=== PATIENT | male | born 1975 | race Caucasian/White ===

== ENCOUNTER → 2020-08-31 08:37 | Outpatient (CLI) | payer OTHER, SELFPAY ==
[2020-08-31 13:09] LABS: Absolute Lymphocyte Count 1.76 X10^3/uL (0.83-4.51); Absolute Neutrophil Count 4.3 X10^3/uL (2.0-7.7); Basophil# 0.06 X10^3/uL; Basophil% 0.9 % (0-1); Eosinophil# 0.32 X10^3/uL; Eosinophils% 4.6 % (0-5); Hematocrit 45.8 % (40-54); Hemoglobin 14.9 g/dL (13.0-16.5); Lymphocyte # 1.76 X10^3/ul (4.0); Lymphocyte % 25.1 % (19-41); Mean Corp Hgb Conc 32.5 g/dL (32-36); Mean Corpuscular Hgb 28.8 pg (27.0-32.0); Mean Corpuscular Volume 88.6 fL (80-94); Mean Platelet Vol. 8.9 fl (6.2-12.0); Monocyte# 0.56 X10^3/uL; NRBC Flagged by Analyzer 0 % (0-5); Neutrophil # 4.29 X10^3/uL (2.7-7.7); Neutrophil % 61.1 % (47-70); Platelet Count 244 K/mm3 (150-450); RBC Distribution Width CV 12.6 % (11.6-14.6); RBC Distribution Width SD 40.8 fl (35.1-43.9); Red Blood Count 5.17 M/mm3 (4.6-6.2)
[2020-08-31 13:20] LABS: ALB/GLOB Ratio 0.9 RATIO (0.9-2.4); AST(SGOT) 24 U/L (15-37); Alanine Aminotransfer ALT/SGPT 46 U/L (16-61); Albumin, Serum 3.7 g/dL (3.2-5.0); Alkaline Phosphatase 45 U/L (45-117); Anion Gap 7 (5-15); BUN 16 mg/dL (7-18); BUN/Creat Ratio 16.3 RATIO (10-20); Calcium,Total 8.6 mg/dL (8.5-10.1); Chloride 106 mmol/L (98-107); Cholesterol 138 mg/dL (200); Creatinine, Serum 0.98 mg/dL (0.70-1.30); EST Glomerular Filtration Rate 87 mL/min (>60); Est Glom Filt Rate - Afr Amer 106 mL/min (>60); Globulin 3.9 g/dL (2.2-4.2); Glucose 90 mg/dL (74-106); High Density Lipoprotein 49 mg/dL; Protein, Total 7.6 g/dL (6.4-8.2); Sodium Level 139 mmol/L (136-145); Triglycerides 100 mg/dL; Very Low Density Lipoprotein 20 mg/dL (5-40)
== END ==
PROVIDERS: Visit Provider Family Medicine
DX: Z00.00 Encounter for general adult medical examination without abnormal findings (principal)
CPT/HCPCS: 36415; 80053; 80061; 85025

== ENCOUNTER 2024-01-23 09:44 | Emergency (ER) | payer OTHER, SELFPAY ==
[2024-01-23 09:45] VITALS: BP 140/93; PULSE 105; RESP 16; TEMP 36.2; O2SAT 100; BMI 40.1
--- NOTE | 2024-01-23 10:44 | ED.VIS.LOWEX ---
HPI History of Present Illness Chief Complaint: Lower Extremity Injury Narrative Narrative: 48-year-old male presenting with right Achilles pain. He states has been ongoing for weeks. Patient states has been using RICE therapy but without having improvement. Denies recent travel, history of DVT/PE, recent surgery, bedridden or mobilize, history of cancer, exogenous hormone use. Patient states it hurts when he plantarflex and dorsiflex the right foot. Patient states range of motion is limiting him and is worsening. Patient states he came to the urgent care today and was referred to the ER as they were unable to determine whether he was a ruptured Achilles or not. [facility] Medical History Depression Home Medications methylprednisolone 4 mg tablets in a dose pack (Medrol (Jason)) See Rx Instructions PO .COMPLEX #21 tabs 01/23/24 [Rx Last Taken Unknown] Allergy/AdvReac Type Severity Reaction Status Date / Time No Known Allergies Allergy Verified 01/23/24 09:47 Social History Smoking Status: Never smoker ROS ROS ED Constitutional Constitutional ED: Denies chills, fever(s) or sweats Eyes Eyes: Denies blurry vision or change in vision ENT ENT ED: Denies ear pain or sore throat Cardiovascular Cardiovascular: Denies chest pain, palpitations or racing heartbeat Respiratory/Chest Respiratory/Chest: Denies cough, dyspnea or sputum Gastrointestinal Gastrointestinal: Denies abdominal pain, constipation, diarrhea, nausea or vomiting Genitourinary Genitourinary ED: Denies dysuria, hematuria or urinary frequency Musculoskeletal Musculoskeletal: Reports other Details: Pain in right Achilles ; Denies arthralgias, myalgias or neck pain Integumentary Denies abscess, Abrasions or rash Neurologic Neurologic: Denies headache(s), paresthesias or weakness Psychiatric Psychiatric: Denies anxiety, depression, suicidal ideation or suicidal thoughts Endocrine Endocrinology: Denies polydipsia or polyuria EXAM Physical Exam Const Vital Signs: 01/23/24 09:45 01/23/24 09:45 Temperature 97.2 F L Temperature Source Temporal Pulse Rate 105 H 105 H Respiratory Rate 16 16 Blood Pressure 140/93 H 140/93 H Blood Pressure Mean 108 108 Pulse Ox 100 100 Oxygen Delivery Method Room Air Room Air Positive well nourished General Appearance ED: NAD HEENT Reports moist mucous membranes Chest Wall inspection of chest normal Resp normal respiratory effort and no retractions Cardio regular rate and regular rhythm Extremity Extremity Narrative: Tenderness to palpation over right Achilles. Negative Brown test.. Compartments soft in the right calf. No cords palpated. Neuro oriented x3 and CN's II-XII intact bilaterally Sensorium / Orientation: alert Motor Exam: strength 5/5 throughout Psych mental status grossly normal Skin no wounds MDM MDM MDM Narrative Medical decision making narrative: 48-year-old male presenting with right leg pain in the right Achilles. Denies any trauma. Patient states negative Brown test for rupture although patient has pain with plantarflexion and dorsiflexion. Basically no evidence of gout. Compartments are soft. No evidence of DVT or compartment syndrome. Discussed with Dr. Velasquez who is on-call for podiatry who recommended a walking boot and a recent Medrol Dosepak. Patient was amenable to this. He states he has crutches at home if he needs him. Patient will be discharged home in stable condition. Impression: 1. Right Achilles tendinitis Lab Data Attestation: I reviewed the patient's lab results. Discharge Plan Triage Chief Complaint: Lower Extremity Injury ED Provider: Russell Sandhu Dx/Rx/DC Orders Clinical Impression: Achilles tendinitis Instructions: ED Tendonitis Prescriptions: New methylprednisolone [Medrol (Jason)] 4 mg tablets,dose pack See Rx Instructions .ROUTE .COMPLEX Qty: 21 0RF Rx Instructions: orally per package directions Referrals: Everton Velasquez DPM [Med Staff - Active Staff] - As soon as possible Disposition Disposition: Home, Self Care
[2024-01-23] MEDS: Naproxen 500 MG Tablet PO (10:45)
[2024-01-23 12:03] VITALS: BP 135/71; PULSE 79; RESP 15; TEMP 36.4; O2SAT 99
== END 2024-01-23 12:05 | disposition home or self-care (01) ==
LOC: ED 11:37
PROVIDERS: Emergency Provider Student in an Organized Health Care Education/Training Program; PCP Family Medicine; Visit Provider Student in an Organized Health Care Education/Training Program
DX: M76.61 Achilles tendinitis, right leg (principal)
CPT/HCPCS: 99283

== ENCOUNTER → 2024-02-03 | Outpatient (CLI) | payer OTHER, SELFPAY ==
--- NOTE | 2024-02-03 16:02 | MRI_ITS ---
STUDY: MRI RIGHT ANKLE WITHOUT CONTRAST REASON FOR EXAM: Male, 48 years old. FLEXOR TENDON RUPTURE TECHNIQUE: Standardized fat and water weighted pulse sequences were obtained in all 3 orthogonal planes. COMPARISON: None. FINDINGS: Normal subcutis adipose space. Normal posterior tibialis tendon. Normal flexor digitorum longus tendon. Normal flexor hallucis longus tendon. Normal peroneus longus and brevis tendons. Normal tibialis anterior tendon. Normal extensor hallucis longus tendon. Normal extensor digitorum longus tendons. Normal Achilles tendon and teno-osseous insertion. Normal plantar fascia. Normal plantar calcaneal tubercles. Normal intrinsic muscles of the rearfoot. Normal distal tibiofibular syndesmotic ligamentous complex. Normal lateral ligamentous complex. Normal subtalar ligaments and sinus tarsi. Normal deltoid ligamentous complexes. Normal plantar calcaneonavicular (spring) ligament. Normal tibiotalar articulation. Normal talar dome. There is a small posterior subtalar joint effusion. Normal talonavicular articulation. Normal calcaneocuboid articulation. Normal navicular-cuneiform articulations. MRI/Lower Ext Joint Only (Routine) IMPRESSION: Small posterior subtalar joint effusion. No flexor tendon rupture. Electronically Signed: Geovanny Khoury MD at 10:22 EDT ,
== END | disposition home or self-care (01) ==
LOC: MRI 15:57
PROVIDERS: PCP Family Medicine; Referring Provider Podiatrist; Visit Provider Podiatrist
DX: M66.371 Spontaneous rupture of flexor tendons, right ankle and foot (principal)
CPT/HCPCS: 73721

== ENCOUNTER 2024-04-05 16:30 | Outpatient (RCR) | payer OTHER, SELFPAY ==
--- NOTE | 2024-03-08 11:08 | HP.PTEVAL_ITS ---
Patient's Visit Information Visit Information Visit Information: URIAH SLADE is a 48 year old M referred to Physical Therapy by Dr. Everton Velasquez DPM with a diagnosis of R and L achilles tendonitis. Date of Evaluation: 03/02/24 Physical Therapist: Best Granados DPT Visit Plan Frequency: 1-2x /Week Duration: 6 Weeks Plan: 1) US to L calcaneus to calm symptoms 2) graston or DN to R G/S and post tib complex. 3) Calf stretching 4) B loading of G/S complex, progressing to remodel tissue Subjective Subjective: Pt. is here today for his initial evaluation with diagnosis of R achilles tendonitis, and L achilles tendonitis. Pt. reports having increased issues for a few months now. He started a challenge to walk several hundred miles this year and started to have issues in December. Pt. did have an MRI showing R achillies tendonitis, but no rupture. Pt. is still having trouble with walking. He was previously playing indoor soccer as well. He has stopped soccer and walking currently due to pain. He works mostly from home, sitting the majority of the time. He would like to reduce symptoms in order to get back to all recreational activities without limitations. Pain R calf: Pain Intensity (Out of 10): 4 Pain Intensity Range: 2 and 6 L heel: Pain Intensity (Out of 10): 8 Pain Intensity Range: 4 and 8 Objective Objective: POSTURE: Pt. has wide WILY in stance. Increased wt. shift to R side in stance. PALPATION: pt. is pretty tender to palpation of G/S complex and muscle tendon junction on R side. Pt. has marked swelling at L calcaneus and very tender. NEURO: normal throughout. ROM: R ankle: DF 4deg, PF normal, INV normal, EVR normal. L ankle DF 0deg increased pain at calcaneus. INV/EVR/PF all normal. MMT: RLE: DF 34#, PF 10# increase NW, INV 15# NE, EVR 13# NE. LLE: DF 31#, PF 9# increase NW, INV 16# NE, EVR 12# NE. GAIT: pt. ambulates very flat footed, minimal to no forefoot rocker moment bilaterally. Pt. reports increased pain with any push off. Pt. has less pain with not actively elisa his G/S complex. Balance/Special Test Scores Lower Extremity Functional Score: 21 Goals Goal 1:: LTG: Pt. to be I with HEP. Goal Time Frame: 4-6 Weeks Goal 2:: STG: Pt. to be able to walk with normal gait pattern without increase in symptoms. Goal Time Frame: 2-4 Weeks Goal 3:: LTG: Pt. to have normal B ankle ROM without pain. Goal Time Frame: 4-6 Weeks Goal 4:: LTG: Pt. to complete all walking and recreational activities without i ncrease in symptoms. Goal Time Frame: 4-6 Weeks Rehabilitation Potential Physical Therapy Diagnosis: Pt. has signs and symptoms consistent with B achilles tendonitis. Pt. has more of a muscle strain on the R side and insertional on L side. Pt. would benefit from PT to reduce symptoms the remodel tissue to increase [employer] benefit of both tendons. Rehabilitation Potential: Good Anticipated Interventions Patient/Client Instruction: Educate patient on: Condition, Plan of Care, Risk Factors and Benefits of Fitness Program For the Purpose of:: To improve decision making, To facilitate caregiver knowledge, To improve self management, To prevent re-injury, To improve ability to perform tasks related to life management and To improve tolerance to ADL's Therapeutic Exercise to Include: Strength training, Power training, Endurance training, Postural training, Gait and locomotor training, Passive ROM and Active ROM For the Purpose of:: To decrease pain, To increase ROM, To improve nutrient delivery to tissue, To increase oxygenation perfusion, To improve muscle performance and motor function, To improve ability to perform ADL's, To increase tolerance to activity/condition/position, To improve performance and independence with ADL's, To decrease soft tissue restriction, To increase flexibility/ROM and To improve endurance Manual Therapy Techniques to Include: Mobilization, Functional dry needling and Soft tissue mobilization For the Purpose of:: To decrease pain, To decrease swelling/inflammation, To increase ROM and To improve nutrient delivery to tissue Ultrasound (thermal/non thermal): Yes For the Purpose of:: To decrease pain, To decrease swelling/inflammation, To increase ROM and To improve nutrient delivery to tissue Text: Thank you for the opportunity to evaluate your patient. For Medicare and Medicare HMO plans, please review the plan of care and approve it. It will need to be FAXED BACK to us at [phone] for Medicare purposes. For Medicare only, by signing this I certify the plan of care. Please let me know if there are questions or concerns regarding this plan of care. Physician Signature: Date:
== END 2024-04-05 19:00 | disposition home or self-care (01) ==
LOC: PT 16:30
PROVIDERS: PCP Family Medicine; Referring Provider Podiatrist; Visit Provider Podiatrist
DX: M76.61 Achilles tendinitis, right leg (principal); M76.62 Achilles tendinitis, left leg
CPT/HCPCS: 97035; 97110; 97140; 97161

== ENCOUNTER → 2025-02-24 | Outpatient (CLI) | payer OTHER, SELFPAY ==
[2025-02-24 10:58] LABS: Absolute Lymphocyte Count 1.49 X10^3/uL (0.83-4.51); Absolute Neutrophil Count 3.5 X10^3/uL (2.0-7.7); Basophil# 0.06 X10^3/uL; Eosinophil# 0.25 X10^3/uL; Eosinophils% 4.4 % (0-5); Hematocrit 42.4 % (40-54); Hemoglobin 14.4 g/dL (13.0-16.5); Lymphocyte # 1.49 X10^3/ul (0.83-4.51); Mean Corpuscular Hgb 29.4 pg (27.0-32.0); Mean Corpuscular Volume 86.5 fL (80-94); Monocyte# 0.44 X10^3/uL; Monocyte% 7.7 % (0-10); NRBC Flagged by Analyzer 0 % (0-5); Neutrophil # 3.46 X10^3/uL (2.7-7.7); Neutrophil % 60.6 % (47-70); Platelet Count 229 K/mm3 (150-450); RBC Distribution Width CV 12.6 % (11.6-14.6); RBC Distribution Width SD 39.8 fl (35.1-43.9); White Blood Count 5.7 K/mm3 (4.4-11.0)
[2025-02-24 11:25] LABS: ALB/GLOB Ratio 1.4 RATIO (0.9-2.4); AST(SGOT) 25 U/L (<=37); Alanine Aminotransfer ALT/SGPT 36 U/L (<=46); Albumin, Serum 4.1 g/dL (3.5-5.0); Alkaline Phosphatase 45 U/L (40-129); Anion Gap 13 (5-15); BUN 17 mg/dL (4-19); BUN/Creat Ratio 19.1 RATIO (10-20); Calcium,Total 8.5 mg/dL (7.6-11.0); Carbon Dioxide 21.1 mmol/L (21.0-32.0); Chloride 106 mmol/L (98-108); Creatinine, Serum 0.91 mg/dL (0.70-1.20); EST Glomerular Filtration Rate 104 (>60); Free T3 3.2 pg/mL (2.18-3.98); Glucose 95 mg/dL (70-99); Potassium 4.1 mmol/L (3.3-5.1); Protein, Total 7.1 g/dL (5.9-8.4); Sodium Level 140 mmol/L (133-145); Total Bilirubin 0.63 mg/dL (0.00-1.30)
== END | disposition home or self-care (01) ==
LOC: MTLAB 08:10
PROVIDERS: PCP Family Medicine; Referring Provider Family Medicine; Visit Provider Family Medicine
DX: E29.1 Testicular hypofunction (principal); E03.9 Hypothyroidism, unspecified; R63.5 Abnormal weight gain; F32.A Depression, unspecified
CPT/HCPCS: 36415; 80053; 84146; 84402; 84403; 84439; 84443; 84481; 85025